=== PATIENT | female | born 1945 | race Caucasian/White ===

== ENCOUNTER → 2017-06-06 | Outpatient (CLI) | payer MEDICARE, BC ==
[~2017-06-06] MED LIST: FASTIN30 MG PO; NORCO 325 MG-51 TAB PO; PRINIVIL10 MG PO; ZOCOR 20MG20 MG PO
== END ==
LOC: MC.RAD 13:46
DX: Z12.31 Encounter for screening mammogram for malignant neoplasm of breast (principal)

== ENCOUNTER → 2017-11-04 | Outpatient (CLI) | payer MEDICARE, BC ==
[~2017-11-04] MED LIST changes: +ASPI325T6 PO; +NATURAL IRON65 MG; +PRINIVIL20 MG PO
== END ==
LOC: COL.CARD 11-01 09:00
DX: G45.4 Transient global amnesia (principal)

== ENCOUNTER → 2018-01-29 | Outpatient (CLI) | payer MEDICARE, BC | LOC: COL.CARD 13:54 | DX: G45.9 Transient cerebral ischemic attack, unspecified (principal) ==

== ENCOUNTER → 2018-05-14 | Outpatient (CLI) | payer MEDICARE, BC | LOC: COL.VAS 10:23 | DX: I77.9 Disorder of arteries and arterioles, unspecified (principal); I35.8 Other nonrheumatic aortic valve disorders; I34.0 Nonrheumatic mitral (valve) insufficiency ==

== ENCOUNTER → 2018-06-24 | Day surgery (SDC) | payer MEDICARE, BC ==
[2018-06-24] VITALS (8 sets, daily range): BP systolic 124–142; BP diastolic 61–70; PULSE 63–71; TEMP 97.8
[~2018-06-24] VITALS: Ht 162.7 cm; Wt 78.0 kg
[~2018-06-24] MED LIST changes: +ASPIRIN E.C. 8181 MG PO; +KAPSPARGO SPRIN25 MG PO; +LIPITOR 80MG80 MG PO; +MULTI VITAMINS1 TAB PO; -NATURAL IRON65 MG; +NATURAL IRON65 MG PO; +VITAMIN C500 MG PO
[2018-06-24 13:11] LABS: HEMOGLOBIN 10.6 g/dl (12.5-16.0); MEAN CELL VOLUME 99 fl (80.0-100.0); MEAN CORPUSCULAR HEMOGLOBIN 32 pg (27.0-31.0); MEAN CORPUSCULAR HGB CONC 32 g/dl (33.0-37.0); MEAN PLATELET VOLUME 9.7 fl (7.4-10.4); PLATELET COUNT 210 K/mm3 (130-400); RED BLOOD COUNT 3.32 M/mm3 (4.10-5.30); REDCELL DISTRIBUTION WIDTH-CV 13.3 % (11.5-14.5)
[2018-06-24 13:13] LABS: HEMATOCRIT 32.7 % (37.0-47.0)
[2018-06-24 13:15] LABS: PROTHROMBIN TIME 11.7 SECONDS (9.7-12.8)
[2018-06-24 13:23] LABS: CREATININE, serum 1.05 mg/dL (0.52-1.25); POTASSIUM 4.4 mmol/L (3.4-5.0)
== END ==
LOC: COL.CAR 12:30
PROVIDERS: Internal Medicine Interventional Cardiology
DX: I25.118 Atherosclerotic heart disease of native coronary artery with other forms of angina pectoris (principal); R94.39 Abnormal result of other cardiovascular function study; K92.2 Gastrointestinal hemorrhage, unspecified; K55.20 Angiodysplasia of colon without hemorrhage; I65.21 Occlusion and stenosis of right carotid artery; T14.8XXA Other injury of unspecified body region, initial encounter; I10 Essential (primary) hypertension; Z86.73 Personal history of transient ischemic attack (TIA), and cerebral infarction without residual deficits; Z87.891 Personal history of nicotine dependence; Z83.3 Family history of diabetes mellitus; Z82.3 Family history of stroke; Z82.49 Family history of ischemic heart disease and other diseases of the circulatory system
CPT/HCPCS: J1644; J2250; J3010; Q9967

== ENCOUNTER → 2018-07-02 | Outpatient (CLI) | payer MEDICARE, BC | LOC: MC.RAD 10:37 | DX: Z12.31 Encounter for screening mammogram for malignant neoplasm of breast (principal) ==

== ENCOUNTER → 2019-07-17 | Outpatient (CLI) | payer MEDICARE, BC | LOC: MC.RAD 09:56 | DX: Z12.31 Encounter for screening mammogram for malignant neoplasm of breast (principal) ==

== ENCOUNTER → 2021-09-26 | Outpatient (CLI) | payer MEDICARE, BC | LOC: ZCOL.LAB 10:18 | DX: I35.0 Nonrheumatic aortic (valve) stenosis (principal); Z01.810 Encounter for preprocedural cardiovascular examination ==